=== PATIENT | female | born 1935 | race Caucasian/White ===

== ENCOUNTER 2023-06-15 03:06 | Inpatient (IN) | payer OTHER, SELFPAY ==
[2023-06-14 20:45] VITALS: BP 150/87
[2023-06-14 21:34] LABS: % Basophils 0.8 % (0-2); % Eosinophils 2.1 % (0-6); % Immature Granulocytes 0.4 % (0-0.5); % Lymphocytes 9.7 % (20.5-51.1); % Monocytes 5.6 % (1.7-9.3); % Neutrophils 81.4 % (42.2-75.2); Absolute Basophils 0.1 10^3/uL (0-0.2); Absolute Eosinophils 0.3 10^3/uL (0-0.7); Absolute Immature Granulocytes 0.1 10^3/uL (0-0.05); Absolute Lymphocytes 1.2 10^3/uL (1.2-3.4); Absolute Monocytes 0.7 10^3/uL (0.1-0.6); Absolute Neutrophils 9.7 10^3/uL (1.4-6.5); Hematocrit 39.5 % (37.0-47.0); Hemoglobin 13.5 g/dL (12.0-16.0); Mean Corp Hgb Conc. 34.2 g/dL (33.0-37.0); Mean Corpuscular Volume 90.6 fL (81.0-99.0); Mean Platelet Volume 11.2 fL (7.4-10.4); Nucleated Red Blood Cells % 0 %; Platelet Count 133 10^3/uL (130-400); Red Blood Cell Count 4.36 10^6/uL (4.20-5.40); Red Cell Dist. Width 14.7 % (11.5-14.5); White Blood Cell Count 11.9 10^3/uL (4.8-10.8)
[2023-06-14 21:42] LABS: ALT (SGPT) 91 U/L (0-35); AST (SGOT) 115 U/L (14-36); Albumin 4.2 g/dl (3.5-5.0); Alkaline Phosphatase 268 U/L (38-126); Blood Urea Nitrogen 29 mg/dl (7-17); Calcium 9.2 mg/dl (8.4-10.2); Carbon Dioxide 17 mmol/L (22-30); Chloride 104 mmol/L (98-107); Glucose 162 mg/dl (70-99); Potassium 3.8 mmol/L (3.5-5.1); Sodium 136 mmol/L (135-145); Total Bilirubin 2.6 mg/dl (0.2-1.3); Total Protein 8.1 g/dl (6.3-8.2)
[2023-06-14 21:43] LABS: Lactic Acid 3.5 mmol/L (0.7-2.0)
[2023-06-14 22:10] VITALS: BMI 33.9
--- NOTE | 2023-06-14 22:57 | ED.GENMED ---
History of Present Illness
General
Chief Complaint: Abdominal Symptoms
Source: patient
Exam Limitations: none
Time Seen by Provider: 06/14/23 22:15
Nursing documentation reviewed up to this point in time: agreed with
Travel History
Have you had any contact with someone who has COVID-19?: No
Do you have any symptoms of coronavirus? Fever > 100 degrees, chills, cough, shortness of breath, sore throat, loss of taste or smell, muscle aches, or headache?: No
History of Present Illness
History of Present Illness:
Patient presents ED secondary to chills sensation along with multiple vomiting episodes starting yesterday. Patient had a home kit yesterday which revealed positive urinary tract infection. Spoke with her primary care physician who prescribed
Bactrim yesterday. Denies urinary frequency or dysuria. Denies back pain. Denies diarrhea. Denies abdominal pain. Denies headache. Denies chest pain or shortness of breath. Denies coughing. Denies sore throat.
Past History
Past History
ED Past Medical History: HTN, Hypothyroidism and Other (seasnal allergies, UTI, )
ED Past Surgical History: Cholecystectomy, Gynecological (Partial hysterectomy) and Orthopedic ( Bila TKA, shoulder replacement)
Social History
Tobacco: Non-smoker
Alcohol: Occasional
Personal:
Living: with family
Review of Systems
Review of Systems
Allergies reviewed?: Yes
All Other Systems: ROS reviewed and negative except as documented in HPI and ROS
Constitutional: Reports chills; Denies fever
EENT: Reports no symptoms
Respiratory: Reports no symptoms
Cardiac: Reports no symptoms
ABD/GI: Reports nausea and vomiting
: Reports no symptoms
Musculoskeletal: Reports no symptoms
Skin: Reports no symptoms
Neurological: Reports no symptoms
Phy Exam
Physical Exam
Physical Exam:
Physical Exam
General: mild distress, not acutely ill. afebrile. tachycardic
Head: nc/at. eomi
Neck: supple. normal range of motion.
Heart: s1/s2 regular rate and rhythm, no murmur. equal radial pulses.
Lungs: no acute respiratory distress. clear bilaterally
Abdomen: normal bowel sounds. not tender.
Neuro: alert and oriented. no focal neurological deficits
Skin: no rash
Psychiatric: well kept. interactive and cooperative
Extremities: no edema. no calf tenderness.
Course
Orders/Labs/Results
Orders:
Orders
06/14/23 20:52
Electrocardiogram (*1) Urgent
Reason for Study: Tachycardia
EKG- Treatment ONCE
06/14/23 21:23
Complete Blood Count/With Diff Urgent
Comprehensive Metabolic Panel Urgent
Lactic Acid Urgent
Blood Culture Urgent
NORMAN Source: Blood/Venous
Specimen Description:
06/14/23 22:57
Type+Screen Urgent
BBK Wristband Number:
Straight cath- Treatment ONCE
06/14/23 22:58
0.9% Sodium Chloride 1000 ml [Nss] 1,000 ml IV BOLUS
CefTRIAXone [Rocephin] 1,000 mg IV NOW STA
06/14/23 23:01
Urinalysis Reflex To Culture Urgent
Date Specimen was Collected: 06/14/23
Time Specimen was Collected: 22:59
Urine Microscopic Reflex Cult Urgent
Urine Culture Urgent
NORMAN Source: U
Specimen Description:
Date Specimen was Collected: 06/14/23
Time Specimen was Collected: 22:59
06/15/23 02:10
Admit/Transfer Patient As Directed
Co-Sign Provider:
Level of Care: Inpatient admission
Assign to:: Telemetry
Physician / Group: [email or web address]
Diagnosis: Sepsis due to UTI
Reason for Telemetry: Other
Other Reason for Telemetry: Sepsis due to UTI
Date to Stop Telemetry: 06/17/23
Time to Stop Telemetry: 11:00
Reason for Hospitalization: Sepsis due to UTI
Expected length of stay greater than two midnights?: Yes
ELOS- Estimated Length of Stay in days: 5
I certify the patient meets the requirements for IP care: Yes
06/15/23 02:12
Code Status As Directed
Resuscitation Status: Full Code
06/15/23 04:03
0.9% Sodium Chloride 1000 ml [Nss] 1,000 ml IV 100 mls/hr
Acetaminophen [Tylenol] 1,000 mg PO BIDPRN PRN
Albuterol [ProAIR HFA INHALER] 2 puff INH R Q4HPRN PRN
06/15/23 04:03
Activity As Directed
Activity Level: With Assistance
Intake/ Output As Directed
Frequency: Per unit guidelines
Vital Signs As Directed
Frequency: Per unit guidelines
Weight As Directed
Frequency: Daily
DX Deep Vein Thrombosis Video Routine
06/15/23 Breakfast
Cholesterol Lowering
At Your Request: Full Participation
Does patient need a safe tray?: No
Cholesterol Lowering: Sodium, 2 Gram
1999 dudley/17 CHO Diabetic
06/15/23 07:00
Levothyroxine [Synthroid] 25 mcg PO DAILY AT 0700
06/15/23 08:00
Aspirin Chewable [Low Strength Aspirin] 81 mg PO DAILY
Atorvastatin [Lipitor] 40 mg PO DAILY
Furosemide [Lasix] 20 mg PO DAILY
Metoprolol Xl [Toprol Xl] 25 mg PO DAILY
Sacubitril 49/Valsartan 51 [Entresto 49 mg/51 mg] 1 tab PO BID
Sulfasalazine [Azulfidine] 500 mg PO BID
06/15/23 08:58
Complete Blood Count/No Diff IN AM
Comprehensive Metabolic Panel IN AM
Lactic Acid Q4H
Comment: repeat q4 hours x 4 or until less than 2 mmol/L
06/15/23 12:40
Lactic Acid Q4H
Comment: repeat q4 hours x 4 or until less than 2 mmol/L
06/15/23 15:33
Lactic Acid Q4H
Comment: repeat q4 hours x 4 or until less than 2 mmol/L
06/15/23 18:00
Enoxaparin Sodium [Lovenox] 40 mg SC QPM
06/16/23 00:00
CefTRIAXone [Rocephin] 1,000 mg IV Q24H
06/17/23 11:00
DC Protocol for Telemetry ONCE
Abnormal Lab Results
06/14/23 06/14/23
21:23 23:01
WBC 11.9 H 10^3/uL
(4.8-10.8)
RDW 14.7 H %
(11.5-14.5)
MPV 11.2 H fL
(7.4-10.4)
Abs Immat Gran (auto) 0.1 H 10^3/uL
(0-0.05)
Absolute Neuts (auto) 9.7 H 10^3/uL
(1.4-6.5)
Absolute Monos (auto) 0.7 H 10^3/uL
(0.1-0.6)
Neutrophils % 81.4 H %
(42.2-75.2)
Lymphocytes % 9.7 L %
(20.5-51.1)
Carbon Dioxide 17 L mmol/L
(22-30)
BUN 29 H mg/dl
(7-17)
Creatinine 1.3 H mg/dL
(0.6-1.0)
Glucose 162 H mg/dl
(70-99)
Lactic Acid 3.5 H mmol/L
(0.7-2.0)
Total Bilirubin 2.6 H mg/dl
(0.2-1.3)
AST 115 H U/L
(14-36)
ALT 91 H U/L
(0-35)
Alkaline Phosphatase 268 H U/L
(38-126)
Ur Occult Blood Reflex 1+ A
(Negative)
Urine Nitrite (Reflex) Positive A
(Negative)
Urine Bilirubin 1+ A
(Negative)
Leukocyte Esterase Rfl 2+ A
(Negative)
Urine RBC 7-10 A /HPF
(0-2)
Urine WBC (Reflex) >100 A /HPF
(0-5)
Urine Bacteria (Reflex) Many A
(Negative)
Urine Glucose 3+ A
(Negative)
06/14/23 21:23
06/14/23 21:23
Vital Signs
Initial and Last Documented VS:
Initial Vital Signs
Temp Pulse Resp BP Pulse Ox
98.5 F 120 22 150/87 93
06/14/23 20:45 06/14/23 20:45 06/14/23 20:45 06/14/23 20:45 06/14/23 20:45
Last Documented Vital Signs
Temp Pulse Resp BP Pulse Ox
98.1 F 83 20 128/62 91
06/15/23 15:26 06/15/23 15:26 06/15/23 15:26 06/15/23 15:26 06/15/23 15:26
MDM/Problems Addressed
MDM/Problems Addressed:
History and exam concerning for sepsis, likely secondary to UTI with potential development of bacteremia, despite taking 3 doses of Bactrim as an outpatient. As such, patient will be admitted for IV antibiotics and further evaluation/treatment.
Urine culture from April 2023 reviewed. Rocephin ordered.
Blood culture pending.
*Critical Care Note
Total Time (30-74mins, 75-104mins- exclusive of procedures): Not Applicable
ED Attending Note
-
Portions of this chart may have been created with voice recognition software.� Occasional wrong word or��sound alike� substitutions may have occurred due to the inherent limitations of voice recognition software.
Discharge Plan
Departure
Patient Disposition: Admit
Date of Disposition: 06/15/23
Time of Disposition: 00:46
Admit to: Telemetry
Presentation/result/management discussed w/ accepting MD/DO: Hospitalist
Discharge Problem:
Sepsis, Acute UTI
Interventions
Interventions:
*Risk Screen - Suicide Last Done: 06/14/23 20:45
*General Assessment Last Done: 06/14/23 20:45
*Neglect/Abuse Screening Last Done: 06/15/23 03:49
ED- Fall Risk Assessment Last Done: 06/15/23 04:02
*ED COVID-19 Vaccine History Last Done: 06/15/23 04:02
*Nursing Disposition Last Done: 06/15/23 04:02
CW-Ncxfsy[facility] Assessment Last Done: 06/14/23 22:10
Discharge Date and Time
Discharge Date/Time: 06/15/23 04:03
[2023-06-14] MEDS: ROCEPHIN 1000 MG IV (23:35)
[2023-06-14] MEDS: NSS 1000 IV (23:35)
[2023-06-15] VITALS (9 sets, daily range): BP systolic 107–133; BP diastolic 51–80; PULSE 78; O2SAT 93–94; BMI 34.1; BMI 33.9
[2023-06-15 00:25] LABS: Urine Albumin Trace (Neg - Trace); Urine Bilirubin 1+ (Negative); Urine Character Slightly Cloudy (Clear); Urine Color Yellow; Urine Glucose 3+ (Negative); Urine Ketone Negative (Negative); Urine Leukocyte 2+ (Negative); Urine Nitrite Positive (Negative); Urine Occult Blood 1+ (Negative); Urine Specific Gravity 1.015 (<1.030); Urine Urobilinogen Negative (Neg - 1+)
[2023-06-15 01:02] LABS: Urine Bacteria Many (Negative); Urine White Cell >100 /HPF (0-5)
--- NOTE | 2023-06-15 02:05 | HPS.HSE ---
Family Physician
-
Family Physician: DASHAWN Hauser
Chief Complaint
-
chills and rigors
History of Present Illness
87 F HX RA on disease modifying Meds, Diabetic , HX asymptomatic UTI, sepsis due to UTI BiB daughter from home due recurrence nausea, chills and rigors. Similar event yesterday . Daughter repostrs she checked urine home test for UTI and POS. PCP
started on Bactrim but recurrence nausea, chills and rigors and decided to come to ER.
Denied urinary frequency or dysuria.
Denied flank pain
Medical History
Past Medical History
Past Medical History: Reports Other
Additional Past Medical History:
Rheumatoid arthritis
Osteoarthritis
Primary hypertension
Hypocalcemia status post parathyroidectomy
Overflow incontinence
Past Surgical History: Reports Other
Additional Past Surgical History:
Cholecystectomy
Partial hysterectomy
Bilateral total knee replacement
Shoulder replacement
Social History
Tobacco: Non-smoker
Alcohol: Occasional
Personal:
Living: With Family
Family History
Family History: Not pertinent
Allergies / Home Medications
Allergies reflects when Allergies were last updated in [employer].
Home Medications with original date entered in [employer]
Allergy/Medication List:
Allergies
Allergy/AdvReac Type Severity Reaction Status Date / Time
morphine Allergy Itching Verified 06/14/23 20:44
amoxicillin [From Augmentin] AdvReac Rash Verified 06/14/23 20:44
clavulanic acid AdvReac Rash Verified 06/14/23 20:44
[From Augmentin]
Home Medications
cetirizine 10 mg tablet 10 mg PO DAILY Allergies 09/07/19
leflunomide 20 mg tablet (Arava) 20 mg PO DAILY rheumatoid arthritis 09/07/19
levothyroxine 25 mcg tablet 25 mcg PO DAILY Thyroid 09/07/19
calcium citrate 200 mg (950 mg) tablet 200 mg PO DAILY Supplement 06/01/22
estradiol 0.01% (0.1 mg/gram) vaginal cream 1 appful vaginal TUFR Hormonal Agent 06/01/22
mirabegron 50 mg tablet,extended release 24 hr (Myrbetriq) 50 mg PO DAILY Urinary Issue 06/01/22
rlgjucpx-ajjz-suxt 8 mg-folic 400 mcg-K 50 mcg-lutein 300 mcg tablet (Centrum Silver Women) 1 tab PO DAILY Supplement 06/01/22
sulfasalazine 500 mg tablet 500 mg PO BID ARTHRITIS 06/01/22
acetaminophen 500 mg tablet (Tylenol Extra Strength) 1,000 mg PO BIDPRN PRN mild pain 04/05/23
albuterol sulfate 90 mcg/actuation aerosol inhaler (ProAir HFA) 2 puff inhalation R Q4HPRN PRN sob 04/05/23
cholecalciferol (vitamin D3) 50 mcg (2,000 unit) tablet 50 mcg PO DAILY Supplement 04/05/23
aspirin 81 mg chewable tablet (Children's Aspirin) 81 mg PO DAILY Heart Failure 30 days #30 tabs 04/09/23
empagliflozin 10 mg tablet (Jardiance) 10 mg PO DAILY Fluid retention/Swelling 30 days #30 tabs 04/09/23
furosemide 20 mg tablet 20 mg PO DAILY Fluid retention/Swelling 30 days #30 tabs 04/09/23
metoprolol succinate 25 mg tablet,extended release 24 hr 25 mg PO DAILY Blood pressure 30 days #30 tabs 04/09/23
atorvastatin 40 mg tablet 40 mg PO DAILY High cholesterol 06/14/23
sacubitril 49 mg-valsartan 51 mg tablet (Entresto) 1 tab PO BID 06/14/23
Review of Systems
-
Constitutional: Reports Chills
EENT: Reports No Symptoms
Respiratory: Reports No Symptoms
Cardiac: Reports No Symptoms
Abdomen/GI: Reports No Symptoms
: Reports No Symptoms
Musculoskeletal: Reports No Symptoms
Skin: Reports No Symptoms
Neurological: Reports No Symptoms
Endocrine: Reports No Symptoms
Hematologic/Lymphatic: Reports No Symptoms
Psych: Reports No Symptoms
Physical Exam
Vital Signs
Vital Signs
Temp Pulse Resp BP Pulse Ox
99.4 F 90 17 113/51 94
06/15/23 00:15 06/15/23 01:00 06/15/23 01:00 06/15/23 01:00 06/15/23 01:04
Physical Exam
General: Well Developed, Well Nourished and No Apparent Distress
HEENT: NormoCephalic and Moist mucous membranes
Respiratory: Clear
Cardiac: S1/S2 and Regular Rhythm
Breast: Deferred by me
GI: Soft, Non Tender, Non Distended and Normal Bowel Sounds
Rectal: Deferred by Provider
Genito-urinary: Deferred by me and No costovertebral tender
Musculoskeletal: No Edema
Skin: Warm and Dry
Neuro: AO x 3 and Nonfocal/grossly intact
Psych: Calm
Laboratory Results
-
06/14/23 21:23
06/14/23 21:23
Laboratory Results
Lactic Acid 3.5 mmol/L (0.7-2.0) H 06/14/23 21:23
Total Bilirubin 2.6 mg/dl (0.2-1.3) H 06/14/23 21:23
AST 115 U/L (14-36) H 06/14/23 21:23
ALT 91 U/L (0-35) H 06/14/23 21:23
Alkaline Phosphatase 268 U/L (38-126) H 06/14/23 21:23
Data Reviewed
-
Medical Tests (Nuc Med, Echo, EKG etc): Report Reviewed by me
Lab Data: Labs Reviewed by me
Old Records: Reviewed
Impression/Plan
-
Reviewed VS: T 99.4 HR 80s - 90s BP 113/50 POx 94 on RA
Data
WCC 11.9
CO2 17
BUN 29
Cr 1.3 eGFR 40
BG 160
LA 3.5
TB 2.6
AST 115 ALT 90 AKP 270
UA suggestive of UTI
EKG
SINUS TACHYCARDIA WITH OCCASIONAL PREMATURE VENTRICULAR COMPLEXES
LEFT BUNDLE BRANCH BLOCK
ABNORMAL ECG
WHEN COMPARED WITH ECG OF 05-APR-2023 07:07,
PREMATURE VENTRICULAR COMPLEXES ARE NOW PRESENT
UCx sent
BCx sent
Last hospitalist admission: 04/05/23 - 04/09/23 Dxs:
Acute hypoxic respiratory insufficiency likely secondary to new onset of acute HFmrEF
cardiac catheterization for elevated troponin 2/2 non-PR troponin elevation in the setting of acute HFpEF versus NSTEMI
Sepsis likely secondary to e.coli urinary tract infection
Lactic acidosis
ASSESSMENT & PLAN
Sepsis due to UTI s/p septic IVF bolus
HX E Coli POS UCx complicated by sepsis in Apr 2023 - sensitive to most ABx except Gent and Bactrim
Lactic acidosis
PMHX of asymptomatic UTI
- UCx and BCx sent
- Empiric IV CFTX
- IVF NS
- f/u VS and Lactate
Primary hypertension
- cont. Norvasc
Overflow incontinent
- cont. oxybutynin
- Held Myrbetriq
Rheumatoid arthritis
- cont. sulfasalazine
- held leflunomide for now
Hypothyroidism
- cont. Synthroid
DVT Px: LMWH
Code: Full code
IP TLM
[2023-06-15] MEDS: NSS 1000 IV (04:21)
--- NOTE | 2023-06-15 04:45 | PTCARENOTE ---
Received patient from ER, AAOx3. Patient transferred from stretcher to bed with assist of 4. No c/o pain at this time. Oriented to unit, call cuellar in reach. Bed alarm placed for safety.
[2023-06-15] MEDS: SYNTHROID 25 MCG PO (05:58)
[2023-06-15] MEDS: LASIX 20 MG PO (08:46)
[2023-06-15] MEDS: LIPITOR 40 MG PO (08:46)
[2023-06-15] MEDS: AZULFIDINE 500 MG PO ×2 (08:47→20:07)
[2023-06-15] MEDS: TOPROL XL 25 MG PO (08:47)
[2023-06-15] MEDS: ENTRESTO 49 MG/51 MG 1 TAB PO (08:47)
[2023-06-15] MEDS: LOW STRENGTH ASPIRIN 81 MG PO (08:47)
[2023-06-15 09:21] LABS: Hematocrit 35.5 % (37.0-47.0); Hemoglobin 11.9 g/dL (12.0-16.0); Mean Corp Hgb Conc. 33.5 g/dL (33.0-37.0); Mean Corpuscular Hgb 31.2 pg (27.0-31.0); Mean Corpuscular Volume 92.9 fL (81.0-99.0); Mean Platelet Volume 10.9 fL (7.4-10.4); Platelet Count 125 10^3/uL (130-400); Red Blood Cell Count 3.82 10^6/uL (4.20-5.40); Red Cell Dist. Width 14.9 % (11.5-14.5); White Blood Cell Count 12.4 10^3/uL (4.8-10.8)
--- NOTE | 2023-06-15 09:21 | W.PN.UPDATE ---
Update Note
Progress Note Update
Nonbillable update note
Admitted overnight for UTI symptoms, not improving with outpatient Bactrim
AM labs pending
Feels tired, otherwise has no complaints
Assessment:
Severe sepsis (Leukocytosis, tachycardia, UTI, lactic acidosis)
prior hx of MDRO E. Coli
- continue sepsis protocol IVF; follow lactate levels
- continue IV Rocephin, day 1 - follow cultures
SAMARIA on CKD stage 3
- continue IVF; follow labs
- renal/bladder US
Elevated LFTs
- mildly chronically elevated
- now more elevated, no RUQ pain
- trend labs
Chronic HFmrEF
Essential HTN
- hold diuretic/Jardiance/Entresto
- continue BB
- hold Entresto
HLD - statin on hold
Overflow incontinent
- cont oxybutynin
- Held Myrbetriq
- noted prior hx of Bulkamid procedure (Dr. Willy Hill)
Rheumatoid arthritis
Osteoarthritis
- cont Sulfasalazine
- held�leflunomide for now
Hypothyroidism
- continue Synthroid
DVT ppx: Lovenox
Code: Full
[2023-06-15 09:34] LABS: Lactic Acid 2.4 mmol/L (0.7-2.0)
[2023-06-15 09:48] LABS: ALT (SGPT) 66 U/L (0-35); AST (SGOT) 76 U/L (14-36); Albumin 3.3 g/dl (3.5-5.0); Alkaline Phosphatase 217 U/L (38-126); Blood Urea Nitrogen 27 mg/dl (7-17); Calcium 8.4 mg/dl (8.4-10.2); Carbon Dioxide 20 mmol/L (22-30); Chloride 108 mmol/L (98-107); Estimated Creatinine Clearance 35 ml/min; Glucose 108 mg/dl (70-99); Potassium 3.7 mmol/L (3.5-5.1); Sodium 137 mmol/L (135-145); Total Protein 6.6 g/dl (6.3-8.2); eGFR 44.36
[2023-06-15] MEDS: SODIUM BICARBONATE 1150 MEQ IV (10:38)
[2023-06-15 13:01] LABS: Lactic Acid 2.6 mmol/L (0.7-2.0)
[2023-06-15] MEDS: TYLENOL 1000 MG PO (15:09)
[2023-06-15 16:08] LABS: Lactic Acid 1.4 mmol/L (0.7-2.0)
--- NOTE | 2023-06-15 16:44 | CM ---
Alert awake oriented patient who lives with her daughter Mayra and flory Raya 32yo who lives in an condo with 130 steps to enter .
She is assisted in all activities of daily living.Offered VN will need PT OT to assist dc plan.She uses cane and walker.
Never had VN/[facility] hx SNF
Pharmacy [facility]
PCP Dr Hauser
PLAN will need PT OT for dc planning
--- NOTE | 2023-06-15 16:49 | CM ---
Alert awake oriented patient who lives with her daughter Mayra and flory Raya 32yo who lives in an condo with 13 steps to enter .
She is assisted in all activities of daily living.Offered VN will need PT OT to assist dc plan.She uses cane and walker.
Never had VN/[facility] hx SNF
Pharmacy [facility]
PCP Dr Hauser
PLAN will need PT OT for dc planning
[2023-06-15] MEDS: LOVENOX 40 MG SC (17:18)
[2023-06-16] MEDS: STERILE WATER FOR INJECTION 10 ML IV ×2 (00:06→23:10)
[2023-06-16] MEDS: ROCEPHIN 1000 MG IV ×2 (00:06→23:10)
[2023-06-16 03:55] VITALS: BP 134/59
[2023-06-16 06:00] VITALS: BMI 35.0
[2023-06-16] MEDS: SYNTHROID 25 MCG PO (06:11)
[2023-06-16 07:18] VITALS: BP 126/56
[2023-06-16 08:12] LABS: % Basophils 0.8 % (0-2); % Eosinophils 2.7 % (0-6); % Immature Granulocytes 0.3 % (0-0.5); % Lymphocytes 18.8 % (20.5-51.1); % Monocytes 11.7 % (1.7-9.3); % Neutrophils 65.7 % (42.2-75.2); Absolute Basophils 0.1 10^3/uL (0-0.2); Absolute Eosinophils 0.2 10^3/uL (0-0.7); Absolute Lymphocytes 1.4 10^3/uL (1.2-3.4); Absolute Monocytes 0.9 10^3/uL (0.1-0.6); Absolute Neutrophils 4.9 10^3/uL (1.4-6.5); Hematocrit 32.9 % (37.0-47.0); Hemoglobin 11.3 g/dL (12.0-16.0); Mean Corp Hgb Conc. 34.3 g/dL (33.0-37.0); Mean Corpuscular Volume 90.1 fL (81.0-99.0); Mean Platelet Volume 11.9 fL (7.4-10.4); Nucleated Red Blood Cells % 0 %; Platelet Count 123 10^3/uL (130-400); Red Blood Cell Count 3.65 10^6/uL (4.20-5.40); Red Cell Dist. Width 14.4 % (11.5-14.5); White Blood Cell Count 7.4 10^3/uL (4.8-10.8)
[2023-06-16] MEDS: TOPROL XL 25 MG PO (08:21)
[2023-06-16] MEDS: LIPITOR 40 MG PO (08:21)
[2023-06-16] MEDS: LOW STRENGTH ASPIRIN 81 MG PO (08:21)
[2023-06-16] MEDS: AZULFIDINE 500 MG PO ×2 (08:21→19:31)
[2023-06-16 08:29] LABS: ALT (SGPT) 51 U/L (0-35); AST (SGOT) 58 U/L (14-36); Albumin 3.1 g/dl (3.5-5.0); Alkaline Phosphatase 204 U/L (38-126); Blood Urea Nitrogen 24 mg/dl (7-17); Calcium 7.7 mg/dl (8.4-10.2); Carbon Dioxide 20 mmol/L (22-30); Chloride 104 mmol/L (98-107); Estimated Creatinine Clearance 42 ml/min; Glucose 88 mg/dl (70-99); Potassium 3.2 mmol/L (3.5-5.1); Sodium 132 mmol/L (135-145); Total Bilirubin 2.1 mg/dl (0.2-1.3); Total Protein 6.3 g/dl (6.3-8.2); eGFR 55.21
--- NOTE | 2023-06-16 10:08 | W.PN.HOSP.TC ---
Today's Communication/Plan
-
repeat Bcx, continue IV Abx
renal US
cap IVF
PO sodium bicarb x few doses
replete K+
Assessment / Plan
Assessment / Plan
Assessment:
Severe sepsis (Leukocytosis, tachycardia, UTI, lactic acidosis)
E. Coli Bacteremia
prior hx of MDRO E. Coli
- completed sepsis protocol IVF; lactate levels improved
- continue IV Rocephin, day 2 - follow cultures
- repeat blood cultures this AM
SAMARIA on CKD stage 3
- completed IVF; labs improving
- renal/bladder US pending
Elevated LFTs
- mildly chronically elevated
- now more elevated, no RUQ pain
- trend labs
Chronic HFmrEF
Essential HTN
- hold diuretic/Jardiance/Entresto - consider resumption Saturday
- continue BB
HLD - statin on hold
Overflow incontinent
- cont oxybutynin
- Held Myrbetriq
- noted prior hx of Bulkamid procedure (Dr. Willy Hill)
Rheumatoid arthritis
Osteoarthritis
- cont Sulfasalazine
- held�leflunomide for now
Hypothyroidism
- continue Synthroid
Hyponatremia from hypotonic fluids
- monitor BMP
Hypocalcemia in setting of low albumin
Hypokalemia
- replete PO now
Dilutional anemia
DVT ppx: Lovenox
Code: Full
Anticipated Discharge: > 48 hours
Subjective/Interval History
-
Date of Service: June 16, 2023
no complaints
Objective Data
-
Labs:
Laboratory Results
06/16/23
07:00
WBC 7.4
Hgb 11.3 L
Hct 32.9 L
Plt Count 123 L
Sodium 132 L
Potassium 3.2 L
Chloride 104
Carbon Dioxide 20 L
BUN 24 H
Creatinine 1.0
Glucose 88
Calcium 7.7 L
Total Bilirubin 2.1 H
AST 58 H
ALT 51 H
Alkaline Phosphatase 204 H
Vital Signs:
Vital Signs
Temp Pulse Resp BP Pulse Ox
99 F 88 18 126/56 92
06/16/23 07:18 06/16/23 08:21 06/16/23 07:18 06/16/23 08:21 06/16/23 07:18
I&O
06/15/23 06/16/23 06/17/23
06:59 06:59 06:59
Intake Total 2675 / 2675
Balance 2675 / 2675
Physical Exam
-
General: No Apparent Distress
HEENT: Normocephalic and Atraumatic
Respiratory: Negative Wheezes or Rales
Cardiac: Regular Rhythm and S1/S2
GI: Soft and Nontender
Genito-urinary: No Costovertebral Tender
Musculoskeletal: No Edema
Neuro: AO x 3
Hematologic / Lymphatic: No Lymphadenopathy
Psych: Calm
Data Reviewed
-
Total Time Spent with Patient (in minutes): 45
Labs: Labs Reviewed by me
[2023-06-16] MEDS: KCL 40 MEQ PO ×2 (10:23→17:20)
[2023-06-16 11:11] VITALS: BP 125/66
[2023-06-16 15:09] VITALS: BP 114/69
[2023-06-16] MEDS: SODIUM BICARBONATE 650 MG PO ×2 (16:37→21:01)
[2023-06-16] MEDS: LOVENOX 40 MG SC (16:37)
[2023-06-16 19:44] VITALS: BP 128/69
[2023-06-16 23:38] VITALS: BP 127/66
[2023-06-17 03:26] VITALS: BP 143/71
[2023-06-17 06:00] VITALS: BMI 34.8
[2023-06-17] MEDS: SYNTHROID 25 MCG PO (06:04)
--- NOTE | 2023-06-17 06:37 | W.PN.HOSP.TC ---
Today's Communication/Plan
-
cont abx
ID eval
PT/OT
Lasix Entresto resumed with holding parameters
Acidosis resolved, bicarb supplementation completed
Assessment / Plan
Assessment / Plan
Physical Exam
General: No Apparent Distress
HEENT: Normocephalic and Atraumatic
Respiratory: Negative Wheezes or Rales
Cardiac: Regular Rhythm and S1/S2
GI: Soft and Nontender
Genito-urinary: No Costovertebral Tender
Musculoskeletal: No Edema
Neuro: AO x 3
Psych: Calm
Assessment:
Severe sepsis (Leukocytosis, tachycardia, UTI, lactic acidosis)
E. Coli Bacteremia
prior hx of MDRO E. Coli
- completed sepsis protocol IVF; lactate levels improved
- continue IV Rocephin, day 3 - follow cultures note E. coli w/ MDR ampicillin unasyn gentamicin bactrim intermediate resistance cefazolin and tobramycin
- repeat blood cultures NGTD
-ID eval requested
SAMARIA on CKD stage 3
- completed IVF; labs improving
- renal/bladder US appreciated no acute abn's
Elevated LFTs
- mildly chronically elevated
- now more elevated, no RUQ pain
- trend labs, resolving
Chronic HFmrEF
Essential HTN
- hold Jardiance
-lasix Entresto resumed with holding parameters
- continue BB
HLD - statin on hold
Mild Acidosis resolved with Bicarb supplementation completed
Overflow incontinent
- cont oxybutynin
- Held Myrbetriq
- noted prior hx of Bulkamid procedure (Dr. Willy Hill)
Rheumatoid arthritis
Osteoarthritis
- cont Sulfasalazine
- held�leflunomide for now
Hypothyroidism
- continue Synthroid
Hyponatremia from hypotonic fluids
- monitor BMP
Hypocalcemia wnl when corrected for low albumin
Hypokalemia
- replete PO now
Dilutional anemia
DVT ppx: Lovenox
Code: Full
I spent a total of 55 minutes with the patient or on the floor. More than 50% of this time involved counseling and coordination of care.
Anticipated Discharge: 24 - 48 hours
Subjective/Interval History
-
Date of Service: June 17, 2023
Reports general malaise weakness.
Objective Data
-
Labs:
Laboratory Results
06/17/23
06:00
WBC Pending
Hgb Pending
Hct Pending
Plt Count Pending
Sodium Pending
Potassium Pending
Chloride Pending
Carbon Dioxide Pending
BUN Pending
Creatinine Pending
Glucose Pending
Calcium Pending
Total Bilirubin Pending
AST Pending
ALT Pending
Alkaline Phosphatase Pending
Vital Signs:
Vital Signs
Temp Pulse Resp BP Pulse Ox
97.9 F 83 17 143/71 94
06/17/23 03:26 06/17/23 03:26 06/17/23 03:26 06/17/23 03:26 06/17/23 03:26
I&O
06/15/23 06/16/23 06/17/23
06:59 06:59 06:59
Intake Total 2675 / 2675 1140 / 1140
Balance 2675 / 2675 1140 / 1140
[2023-06-17 07:10] VITALS: BP 160/75
[2023-06-17 08:42] LABS: % Basophils 0.8 % (0-2); % Eosinophils 5.5 % (0-6); % Immature Granulocytes 0.3 % (0-0.5); % Lymphocytes 24.5 % (20.5-51.1); % Monocytes 15.8 % (1.7-9.3); % Neutrophils 53.1 % (42.2-75.2); Absolute Basophils 0.1 10^3/uL (0-0.2); Absolute Eosinophils 0.3 10^3/uL (0-0.7); Absolute Lymphocytes 1.5 10^3/uL (1.2-3.4); Absolute Neutrophils 3.2 10^3/uL (1.4-6.5); Hemoglobin 11.4 g/dL (12.0-16.0); Mean Corp Hgb Conc. 33.5 g/dL (33.0-37.0); Mean Corpuscular Hgb 30.8 pg (27.0-31.0); Mean Corpuscular Volume 91.9 fL (81.0-99.0); Mean Platelet Volume 11.2 fL (7.4-10.4); Nucleated Red Blood Cells % 0 %; Platelet Count 129 10^3/uL (130-400); Red Cell Dist. Width 14.5 % (11.5-14.5)
[2023-06-17 08:58] LABS: ALT (SGPT) 42 U/L (0-35); AST (SGOT) 46 U/L (14-36); Albumin 2.9 g/dl (3.5-5.0); Alkaline Phosphatase 195 U/L (38-126); Blood Urea Nitrogen 20 mg/dl (7-17); Calcium 7.7 mg/dl (8.4-10.2); Carbon Dioxide 23 mmol/L (22-30); Chloride 104 mmol/L (98-107); Estimated Creatinine Clearance 47 ml/min; Glucose 98 mg/dl (70-99); Potassium 3.6 mmol/L (3.5-5.1); Sodium 131 mmol/L (135-145); Total Bilirubin 1.4 mg/dl (0.2-1.3); eGFR > 60.00
[2023-06-17] MEDS: LOW STRENGTH ASPIRIN 81 MG PO (09:21)
[2023-06-17] MEDS: LIPITOR 40 MG PO (09:21)
[2023-06-17] MEDS: SODIUM BICARBONATE 650 MG PO ×2 (09:21→17:00)
[2023-06-17] MEDS: TOPROL XL 25 MG PO (09:22)
[2023-06-17] MEDS: AZULFIDINE 500 MG PO ×2 (09:23→20:49)
[2023-06-17 10:34] VITALS: BP 137/68; BP 142/75; PULSE 83; O2SAT 92
[2023-06-17 15:00] VITALS: BP 129/63
[2023-06-17] MEDS: LOVENOX 40 MG SC (17:00)
[2023-06-17] MEDS: ENTRESTO 49 MG/51 MG 1 TAB PO (20:49)
[2023-06-17] MEDS: ROCEPHIN 1000 MG IV (23:09)
[2023-06-17] MEDS: STERILE WATER FOR INJECTION 10 ML IV (23:09)
[2023-06-17 23:42] VITALS: BP 144/66
[2023-06-18] MEDS: SYNTHROID 25 MCG PO (05:13)
[2023-06-18 06:00] VITALS: BMI 34.5
[2023-06-18 07:10] VITALS: BP 164/81
--- NOTE | 2023-06-18 07:59 | W.PN.HOSP.TC ---
Today's Communication/Plan
-
Cont abx
PT/OT
discharge planning SNF rehab vs Home PT
Assessment / Plan
Assessment / Plan
Physical Exam
General: No Apparent Distress
HEENT: Normocephalic and Atraumatic
Respiratory: Negative Wheezes or Rales
Cardiac: Regular Rhythm and S1/S2
GI: Soft and Nontender
Genito-urinary: No Costovertebral Tender
Musculoskeletal: No Edema
Neuro: AO x 3
Psych: Calm
Assessment:
Severe sepsis (Leukocytosis, tachycardia, UTI, lactic acidosis)
E. Coli Bacteremia
prior hx of MDRO E. Coli
- completed sepsis protocol IVF; lactate levels improved
- continue IV Rocephin, day 3 - follow cultures note E. coli w/ MDR ampicillin unasyn gentamicin bactrim intermediate resistance cefazolin and tobramycin
- repeat blood cultures NGTD 48H
-ID eval appreciated cont Ceftriaxone while inpt and convert to Cefdinir on discharge, to cont w/ abx through 06/24
SAMARIA resolved
- completed IVF; labs improving
- renal/bladder US appreciated no acute abn's
Elevated LFTs
- mildly chronically elevated
- improving
Chronic HFmrEF
Essential HTN
- Jardiance discontinued given frequent recurrent UTI
- Lasix Entresto resumed with holding parameters, continue
- continue BB
HLD - statin on hold
Mild Acidosis resolved with Bicarb supplementation completed
Overflow incontinence
- cont oxybutynin
- Held Myrbetriq
- noted prior hx of Bulkamid procedure (Dr. Willy Hill)
-Outpatient Urology Follow up recommended
Rheumatoid arthritis
Osteoarthritis
- cont Sulfasalazine
- held�leflunomide for now
Hypothyroidism
- continue Synthroid
Hyponatremia from hypotonic fluids since improved/resolved Na 130s
Hypocalcemia wnl when corrected for low albumin
Hypokalemia
monitor and replete as needed
Mild Anemia
H&H stable
PT/OT eval appreciated SNF Rehab vs Home PT
DVT ppx: Lovenox
Code: Full
discussed with patient and her daughter Mayra
I spent a total of 55 minutes with the patient or on the floor. More than 50% of this time involved counseling and coordination of care.
Anticipated Discharge: Within 24 hours
Subjective/Interval History
-
Date of Service: June 18, 2023
Continues to report feeling weak though feels overall improved. Denies new acute issues at this time.
Objective Data
-
Labs:
Laboratory Results
06/18/23
07:01
WBC Pending
Hgb Pending
Hct Pending
Plt Count Pending
Sodium Pending
Potassium Pending
Chloride Pending
Carbon Dioxide Pending
BUN Pending
Creatinine Pending
Glucose Pending
Calcium Pending
Total Bilirubin Pending
AST Pending
ALT Pending
Alkaline Phosphatase Pending
Vital Signs:
Vital Signs
Temp Pulse Resp BP Pulse Ox
98.8 F 85 17 144/66 95
06/17/23 23:42 06/17/23 23:42 06/17/23 23:42 06/17/23 23:42 06/17/23 23:42
I&O
06/17/23 06/18/23 06/19/23
06:59 06:59 06:59
Intake Total 1140 / 1140 720 / 720
Balance 1140 / 1140 720 / 720
[2023-06-18 08:14] LABS: % Basophils 1.5 % (0-2); % Eosinophils 7.7 % (0-6); % Immature Granulocytes 0.4 % (0-0.5); % Lymphocytes 26.5 % (20.5-51.1); % Neutrophils 50.9 % (42.2-75.2); Absolute Basophils 0.1 10^3/uL (0-0.2); Absolute Eosinophils 0.4 10^3/uL (0-0.7); Absolute Lymphocytes 1.5 10^3/uL (1.2-3.4); Absolute Monocytes 0.7 10^3/uL (0.1-0.6); Absolute Neutrophils 2.8 10^3/uL (1.4-6.5); Hematocrit 34.9 % (37.0-47.0); Hemoglobin 11.9 g/dL (12.0-16.0); Mean Corp Hgb Conc. 34.1 g/dL (33.0-37.0); Mean Corpuscular Hgb 31.5 pg (27.0-31.0); Mean Corpuscular Volume 92.3 fL (81.0-99.0); Mean Platelet Volume 11.1 fL (7.4-10.4); Nucleated Red Blood Cells % 0 %; Platelet Count 154 10^3/uL (130-400); Red Blood Cell Count 3.78 10^6/uL (4.20-5.40); Red Cell Dist. Width 14.1 % (11.5-14.5); White Blood Cell Count 5.5 10^3/uL (4.8-10.8)
[2023-06-18 08:23] LABS: ALT (SGPT) 36 U/L (0-35); AST (SGOT) 38 U/L (14-36); Albumin 2.9 g/dl (3.5-5.0); Alkaline Phosphatase 211 U/L (38-126); Blood Urea Nitrogen 18 mg/dl (7-17); Calcium 8.6 mg/dl (8.4-10.2); Carbon Dioxide 24 mmol/L (22-30); Chloride 103 mmol/L (98-107); Estimated Creatinine Clearance 60 ml/min; Glucose 100 mg/dl (70-99); Potassium 3.8 mmol/L (3.5-5.1); Sodium 135 mmol/L (135-145); Total Bilirubin 1.2 mg/dl (0.2-1.3); Total Protein 6.2 g/dl (6.3-8.2); eGFR > 60.00
[2023-06-18] MEDS: LASIX 20 MG PO (09:14)
[2023-06-18] MEDS: LOW STRENGTH ASPIRIN 81 MG PO (09:14)
[2023-06-18] MEDS: LIPITOR 40 MG PO (09:14)
[2023-06-18] MEDS: AZULFIDINE 500 MG PO ×2 (09:15→20:04)
[2023-06-18] MEDS: ENTRESTO 49 MG/51 MG 1 TAB PO ×2 (09:15→20:03)
[2023-06-18] MEDS: TOPROL XL 25 MG PO (09:15)
--- NOTE | 2023-06-18 09:33 | CON.ID ---
Consultation
-
Date/Time Consultation Requested: 06/17/2023 1030
Date/Time Consultation Performed: 06/18/2023 930
Requesting Provider: Dr. Fraga
Performing Provider: Dr. Murphy
Reason for Consultation: E. coli bacteremia
Chief Complaint / Past History
History of Present Illness
Tati Eldridge is an 87-year-old female being evaluated at the request of Dr. Fraga in regards to E. coli bacteremia. History is obtained from chart review, along with patient interview. The patient presented to [facility] on 06/13 following
the development of chills and multiple episodes of vomiting starting on 06/12. According to reviewed notes the patient had a 'home kit' which did not suggested a urinary tract infection, but after discussing with her PCP, was prescribed Bactrim.
She denied any frequency or dysuria, back pain or diarrhea. Despite antibiotics, she continued with episodes of chills and developed vomiting, and she came to the emergency room for further evaluation. Once here, she was found to have a
leukocytosis. Blood cultures obtained at admission, along with urine culture have been found to be positive for E. coli, and Infectious Diseases is asked to comment upon further antimicrobial therapy.
At present, she reports feeling well. She denies any pain. She denies any urinary discomfort. She denies any hematuria. Prior chills have abated.
Past History
Additional Past Medical History:
HTN
Hypothyroidism
Hx UTIs
Additional Past Surgical History:
Cholecystectomy
Partial hysterectomy
Bilateral TKA
Shoulder replacement
Allergy History:
morphine Allergy (Verified 06/14/23 20:44)
Itching
Augmentin: Developed jaundice
Medications Reviewed: Yes
Current Antibiotics:
Ceftriaxone
Social History
Tobacco: Non-Smoker
Alcohol: Occasional
Drug: None
Personal:
Living: With Family
Employment: Retired
Family History
Family History: Not Pertinent
Review of Systems
Vital Signs
Temp Pulse Resp BP Pulse Ox
98 F 85 20 164/81 93
06/18/23 07:10 06/18/23 09:15 06/18/23 07:10 06/18/23 09:15 06/18/23 07:10
Physical Exam
Physical Exam
Constitutional: No Acute Distress, Comfortable and Non-toxic
Eyes: Pupils Round, No Conjunctival Hemorrhage and Sclera Anicteric
Oral: No Thrush and No Ulcers
Cardiovascular: S1/S2; Negative S3/S4 or Murmur
Pulmonary: Non Labored; Negative Wheezes, Rales or Rhonchi
Gastrointestinal: Soft, Non Tender, Non Distended, Normal Bowel Sounds, No Rebound and No Guarding
Genito-Urinary: Negative Tsang, Suprapubic Tenderness or CVA Tenderness
Extremities: Negative Edema, Cyanosis or Erythema
Neurological: Awake and Alert
Psychological: Calm
Lab / Diagnostic Study Results
06/18/23 07:01
06/18/23 07:01
Abs Immat Gran (auto) 0.0 10^3/uL (0-0.05) 06/18/23 07:01
Absolute Neuts (auto) 2.8 10^3/uL (1.4-6.5) 06/18/23 07:01
Absolute Lymphs (auto) 1.5 10^3/uL (1.2-3.4) 06/18/23 07:01
Absolute Monos (auto) 0.7 10^3/uL (0.1-0.6) H 06/18/23 07:01
Absolute Basos (auto) 0.1 10^3/uL (0-0.2) 06/18/23 07:01
Immature Gran % 0.4 % (0-0.5) 06/18/23 07:01
Neutrophils % 50.9 % (42.2-75.2) 06/18/23 07:01
Lymphocytes % 26.5 % (20.5-51.1) 06/18/23 07:01
Monocytes % 13.0 % (1.7-9.3) H 06/18/23 07:01
Eosinophils % 7.7 % (0-6) H 06/18/23 07:01
Basophils % 1.5 % (0-2) 06/18/23 07:01
Lactic Acid 1.4 mmol/L (0.7-2.0) 06/15/23 15:33
Ur Squamous Epith Cells 3-5 /LPF (Few) 06/14/23 23:01
Microbiology Results
Micro:
06/16/23 07:00 Blood Culture - Preliminary
Blood/Venous No Growth in 48 hours- Final report to follow
06/14/23 21:23 Blood Culture - Final
Blood/Venous Escherichia coli
Gram Stain - Final
06/14/23 23:01 Urine Culture - Final
Urine Escherichia coli
Blood Culture Final 06/17/23-34
Organism 1 Escherichia coli
1. Escherichia coli
M.I.C. RX
--------- ---
Amoxicillin/Potas. Clavulanate <=8/4 S
Ampicillin >16 R
Ampicillin/Sulbactam >16/8 R
Cefazolin 4 I
Cefepime <=2 S
Ceftazidime <=1 S
Ceftriaxone <=1 S
Ertapenem <=0.5 S
Ciprofloxacin <=0.25 S
Gentamicin >8 R
Levofloxacin <=0.5 S
Meropenem <=1 S
Piperacillin/Tazobactam <=16 S
Tobramycin 8 I
Trimethoprim/Sulfamethoxazole >2/38 R
Imaging:
06/16/2023 Ultrasound (renal with bladder): No hydronephrosis noted. No solid renal mass or echogenic shadowing foci to suggest renal calculi. A largely decompressed bladder is seen in the pelvis and otherwise appears grossly unremarkable.
Ureterovesical jets were not visualized. Please see full dictation for additional detail.
Assessment / Plan
Complicated urinary tract infection
Bacteremia
Leukocytosis
Chills
HTN
Hypothyroidism
Recommendations:
Continue with ceftriaxone while inpatient.
At discharge, change to cefdinir 300 mg p.o. twice daily. Continue with antibiotics through 06/25/2023.
Consider repeat urinalysis/reflex culture approximately 10 to 14 days following completion of antibiotic therapy.
Given history of multiple episodes of UTI, patient may benefit from Urology evaluation as an outpatient.
[2023-06-18 15:10] VITALS: BP 145/73
[2023-06-18 15:47] VITALS: BP 145/71; PULSE 86; O2SAT 93
--- NOTE | 2023-06-18 16:55 | CM ---
CM following re: d/c planning
Chart reviewed
Pt discharge anticipated within the next 24-48 hours
ID following and patient to continue on IV Rocephin before transitioning to oral Omnicef through 06/24
Per PT eval. post d/c recommendation wavers btwn SNF vs home PT
CM will continue to monitor patient progress and assist with any needs at d/c as indicated
PLAN: CM following for needs
[2023-06-18] MEDS: LOVENOX 40 MG SC (17:01)
[2023-06-18 23:00] VITALS: BP 122/57
[2023-06-19] MEDS: STERILE WATER FOR INJECTION 10 ML IV ×2 (01:00→23:55)
[2023-06-19] MEDS: ROCEPHIN 1000 MG IV ×2 (01:00→23:55)
[2023-06-19 05:11] VITALS: BMI 34.1
[2023-06-19] MEDS: SYNTHROID 25 MCG PO (05:49)
--- NOTE | 2023-06-19 07:11 | W.PN.HOSP.TC ---
Today's Communication/Plan
-
cont current treatment
likely discharge tomorrow with outpatient PT (patient declines home health)
Assessment / Plan
Assessment / Plan
Physical Exam
General: No Apparent Distress
HEENT: Normocephalic and Atraumatic
Respiratory: Negative Wheezes or Rales
Cardiac: Regular Rhythm and S1/S2
GI: Soft and Nontender
Genito-urinary: No Costovertebral Tender
Musculoskeletal: No Edema
Neuro: AO x 3
Psych: Calm
Assessment:
Severe sepsis (Leukocytosis, tachycardia, UTI, lactic acidosis)
E. Coli Bacteremia
prior hx of MDRO E. Coli
- completed sepsis protocol IVF; lactate levels improved
- continue IV Rocephin, day 3 - follow cultures note E. coli w/ MDR ampicillin unasyn gentamicin bactrim intermediate resistance cefazolin and tobramycin
- repeat blood cultures NGTD 48H
-ID eval appreciated cont Ceftriaxone while inpt and convert to Cefdinir on discharge, to cont w/ abx through 06/24
SAMARIA resolved
- completed IVF
- renal/bladder US appreciated no acute abn's
Elevated LFTs
- mildly chronically elevated
- improving
Chronic HFmrEF
Essential HTN
- Jardiance discontinued given frequent recurrent UTI
- Lasix Entresto resumed with holding parameters, continue
- continue BB
HLD - statin on hold
Mild Acidosis resolved with Bicarb supplementation completed
Overflow incontinence
- cont oxybutynin
- Held Myrbetriq
- noted prior hx of Bulkamid procedure (Dr. Willy Hill)
-Outpatient Urology Follow up recommended
Rheumatoid arthritis
Osteoarthritis
- cont Sulfasalazine
- held�leflunomide for now
Hypothyroidism
- continue Synthroid
Hyponatremia from hypotonic fluids since improved/resolved Na 130s
Hypocalcemia wnl when corrected for low albumin
Hypokalemia
monitor and replete as needed
Mild Anemia
H&H stable
PT/OT eval appreciated patient improving recommending home health however patient declines
DVT ppx: Lovenox
Code: Full
I spent a total of 50 minutes with the patient or on the floor. More than 50% of this time involved counseling and coordination of care.
Anticipated Discharge: Within 24 hours
Subjective/Interval History
-
Date of Service: June 19, 2023
No acute distress reports feeling well.
Objective Data
-
Labs:
Laboratory Results
06/19/23
07:09
WBC Pending
Hgb Pending
Hct Pending
Plt Count Pending
Sodium Pending
Potassium Pending
Chloride Pending
Carbon Dioxide Pending
BUN Pending
Creatinine Pending
Glucose Pending
Calcium Pending
Total Bilirubin Pending
AST Pending
ALT Pending
Alkaline Phosphatase Pending
Vital Signs:
Vital Signs
Temp Pulse Resp BP Pulse Ox
97.4 F 82 14 122/57 94
06/18/23 23:00 06/18/23 23:00 06/18/23 23:00 06/18/23 23:00 06/18/23 23:00
I&O
06/18/23 06/19/23 06/20/23
06:59 06:59 06:59
Intake Total 720 / 720 900 / 900
Balance 720 / 720 900 / 900
[2023-06-19 07:50] VITALS: BP 125/56
[2023-06-19 08:03] LABS: % Basophils 1.2 % (0-2); % Eosinophils 8.3 % (0-6); % Immature Granulocytes 0.3 % (0-0.5); % Monocytes 13.3 % (1.7-9.3); % Neutrophils 43.9 % (42.2-75.2); Absolute Basophils 0.1 10^3/uL (0-0.2); Absolute Eosinophils 0.5 10^3/uL (0-0.7); Absolute Lymphocytes 1.9 10^3/uL (1.2-3.4); Absolute Monocytes 0.8 10^3/uL (0.1-0.6); Absolute Neutrophils 2.5 10^3/uL (1.4-6.5); Hematocrit 35.8 % (37.0-47.0); Hemoglobin 11.9 g/dL (12.0-16.0); Mean Corp Hgb Conc. 33.2 g/dL (33.0-37.0); Mean Corpuscular Hgb 30.7 pg (27.0-31.0); Mean Corpuscular Volume 92.5 fL (81.0-99.0); Mean Platelet Volume 10.6 fL (7.4-10.4); Nucleated Red Blood Cells % 0 %; Platelet Count 185 10^3/uL (130-400); Red Blood Cell Count 3.87 10^6/uL (4.20-5.40); Red Cell Dist. Width 13.9 % (11.5-14.5); White Blood Cell Count 5.8 10^3/uL (4.8-10.8)
[2023-06-19 08:11] LABS: ALT (SGPT) 36 U/L (0-35); AST (SGOT) 45 U/L (14-36); Alkaline Phosphatase 224 U/L (38-126); Blood Urea Nitrogen 20 mg/dl (7-17); Calcium 8.8 mg/dl (8.4-10.2); Carbon Dioxide 26 mmol/L (22-30); Chloride 102 mmol/L (98-107); Estimated Creatinine Clearance 59 ml/min; Glucose 100 mg/dl (70-99); Potassium 3.6 mmol/L (3.5-5.1); Sodium 136 mmol/L (135-145); Total Protein 6.3 g/dl (6.3-8.2); eGFR > 60.00
[2023-06-19] MEDS: AZULFIDINE 500 MG PO ×2 (09:37→21:17)
[2023-06-19] MEDS: LOW STRENGTH ASPIRIN 81 MG PO (09:37)
[2023-06-19] MEDS: LIPITOR 40 MG PO (09:37)
[2023-06-19] MEDS: LASIX 20 MG PO (09:37)
[2023-06-19] MEDS: TOPROL XL 25 MG PO (09:37)
[2023-06-19] MEDS: ENTRESTO 49 MG/51 MG 1 TAB PO ×2 (09:37→21:17)
[2023-06-19] MEDS: DESENEX/MITRAZOL/ZEASORB 1 APPLIC TOPICAL ×2 (09:39→21:16)
[2023-06-19 10:20] VITALS: BP 138/66; PULSE 83; O2SAT 94
--- NOTE | 2023-06-19 11:16 | W.PN.ID1 ---
Date of Service
Date of Service: June 19, 2023
Today's Communication
Continue antibiotics.
Assessment / Plan
Complicated urinary tract infection
Bacteremia
Leukocytosis
Chills
HTN
Hypothyroidism
Recommendations:
Continue with ceftriaxone while inpatient.
At discharge, change to cefdinir 300 mg p.o. twice daily. Continue with antibiotics through 06/25/2023.
Consider repeat urinalysis/reflex culture approximately 10 to 14 days following completion of antibiotic therapy.
Given history of multiple episodes of UTI, patient may benefit from Urology evaluation as an outpatient.
Chief Complaint
-: UTI and Bacteremia
Subjective / Review of Systems
Review of Systems: No Fever, No Chills, No Cough, No Abdominal Pain and No Dysuria
Vital Signs / Physical Exam
Vital Signs
Vital Signs
Temp Pulse Resp BP Pulse Ox
97.6 F 82 18 125/56 93
06/19/23 07:50 06/19/23 07:50 06/19/23 07:50 06/19/23 07:50 06/19/23 07:50
Physical Exam
Constitutional: No Acute Distress, Comfortable and Non-toxic
Cardiovascular: S1/S2; Negative S3/S4
Pulmonary: Non Labored; Negative Wheezes or Rales
Gastrointestinal: Soft, Non Tender and Non Distended
Genito-Urinary: Negative CVA Tenderness
Neurological: Awake and Alert
Psychological: Calm
Objective Data
Lab Data
Lab Results
06/19/23 07:09
06/19/23 07:09
Estimated Creat Clear 59 ml/min 06/19/23 07:09
Lactic Acid 1.4 mmol/L (0.7-2.0) 06/15/23 15:33
Total Bilirubin 1.0 mg/dl (0.2-1.3) 06/19/23 07:09
AST 45 U/L (14-36) H 06/19/23 07:09
ALT 36 U/L (0-35) H 06/19/23 07:09
Alkaline Phosphatase 224 U/L (38-126) H 06/19/23 07:09
Most recent labs reviewed.
Micro Results:
06/16/23 07:00 Blood Culture - Preliminary
Blood/Venous No Growth in 72 hours- Final report to follow
06/14/23 21:23 Blood Culture - Final
Blood/Venous Escherichia coli
Gram Stain - Final
06/14/23 23:01 Urine Culture - Final
Urine Escherichia coli
Blood Culture Final 06/17/23-0834
Organism 1 Escherichia coli
1. Escherichia coli
M.I.C. RX
--------- ---
Amoxicillin/Potas. Clavulanate <=8/4 S
Ampicillin >16 R
Ampicillin/Sulbactam >16/8 R
Cefazolin 4 I
Cefepime <=2 S
Ceftazidime <=1 S
Ceftriaxone <=1 S
Ertapenem <=0.5 S
Ciprofloxacin <=0.25 S
Gentamicin >8 R
Levofloxacin <=0.5 S
Meropenem <=1 S
Piperacillin/Tazobactam <=16 S
Tobramycin 8 I
Trimethoprim/Sulfamethoxazole >2/38 R
Imaging:
06/16/2023 Ultrasound (renal with bladder): No hydronephrosis noted. No solid renal mass or echogenic shadowing foci to suggest renal calculi. A largely decompressed bladder is seen in the pelvis and otherwise appears grossly unremarkable.
Ureterovesical jets were not visualized. Please see full dictation for additional detail.
--- NOTE | 2023-06-19 14:24 | CM ---
CM reviewed pt with Dr Fraga- ready for dc
Call from dtr who is requesting SNF be arranged at [facility]
Therapy evals reviewed thoroughly of SNF vs VN and role of IBC in auth determination reviewed
Pt offered bed at [facility]
IBC auth obtained
Auth# [id number] 6 days NRD 06/23 call [phone]
CM attempted bedside meeting with pt to discuss [facility] SNF
Pt refusing to speak with CM, deferred all planning to dtr
Call back from dtr who noted pt refusing SNF, only will go home now
VN discussed and was declined due to poor past experience
Pt and dtr in agreement with outpatient therapy
Dtr and grandtr will be home come tomorrow throughout the days to assist pt
Dr Fraga in agreement with dc tomorrow with outpt therapy
[facility] admissions alerted of change in dc dispo
Discharge Disposition- tomorrow home with outpt PT/OT
[2023-06-19 15:55] VITALS: BP 120/66
[2023-06-19] MEDS: LOVENOX 40 MG SC (16:30)
[2023-06-19 16:50] VITALS: BP 151/93; PULSE 96; O2SAT 95
[2023-06-19 23:50] VITALS: BP 132/65
[2023-06-20] MEDS: SYNTHROID 25 MCG PO (05:46)
[2023-06-20 06:00] VITALS: BMI 33.6
[2023-06-20 07:00] VITALS: BP 141/61
--- NOTE | 2023-06-20 07:22 | W.PN.HOSP.TC ---
Addendum entered and electronically signed by Paulina Fraga MD 06/20/23 16:25:
correction to below, home atorvastatin resumed since 06/14 tolerating well.
Original Note:
Today's Communication/Plan
-
discharge
Assessment / Plan
Assessment / Plan
Physical Exam
General: No Apparent Distress
HEENT: Normocephalic and Atraumatic
Respiratory: Negative Wheezes or Rales
Cardiac: Regular Rhythm and S1/S2
GI: Soft and Nontender
Genito-urinary: No Costovertebral Tender
Musculoskeletal: No Edema
Neuro: AO x 3
Psych: Calm
Assessment:
Severe sepsis (Leukocytosis, tachycardia, UTI, lactic acidosis)
E. Coli Bacteremia
prior hx of MDRO E. Coli
- completed sepsis protocol IVF; lactate levels improved
- cultures noted E. coli w/ MDR ampicillin unasyn gentamicin bactrim intermediate resistance cefazolin and tobramycin
- repeat blood cultures NGTD >48H
-ID eval appreciated cont Ceftriaxone while inpt and convert to Cefdinir 300 mg BID on discharge, to cont w/ abx through 06/24
SAMARIA resolved
- completed IVF
- renal/bladder US appreciated no acute abn's
Elevated LFTs
- mildly chronically elevated
- improving/stable
Chronic HFmrEF
Essential HTN
- Jardiance discontinued given frequent recurrent UTI
- Lasix Entresto resumed with holding parameters, continue
- continue BB
HLD - statin on hold
Mild Acidosis resolved with Bicarb supplementation completed
Overflow incontinence
- cont oxybutynin
- Held Myrbetriq
- noted prior hx of Bulkamid procedure (Dr. Willy Hill)
-Outpatient Urology Follow up recommended
Rheumatoid arthritis
Osteoarthritis
- cont Sulfasalazine
- held�leflunomide for now
Hypothyroidism
- continue Synthroid
Hyponatremia from hypotonic fluids since improved/resolved Na 130s
Hypocalcemia wnl when corrected for low albumin
Hypokalemia
monitor and replete as needed
Mild Anemia
H&H stable
PT/OT eval appreciated patient improving recommending home health however patient declines
DVT ppx: Lovenox
Code: Full
Medically stable for discharge home with outpatient PT/OT and follow up recommendations.
discussed with patient and her daughter Mayra
Total Time Preparing Discharge ___50____ minutes including examination of the patient, summary of the hospital stay, instructions for continuing care to all relevant caregivers; and preparation of discharge records, prescriptions, and referral
forms if necessary.
Anticipated Discharge: Today
Subjective/Interval History
-
Date of Service: June 20, 2023
Seen and examined at bedside in no acute distress sitting up comfortably in chair. Reports overall feeling well. Denies new acute issues. Eager to go home.
Objective Data
-
Vital Signs:
Vital Signs
Temp Pulse Resp BP Pulse Ox
97.4 F 78 17 132/65 93
06/19/23 23:50 06/19/23 23:50 06/19/23 23:50 06/19/23 23:50 06/19/23 23:50
I&O
06/19/23 06/20/23 06/21/23
06:59 06:59 06:59
Intake Total 900 / 900 990 / 990
Balance 900 / 900 990 / 990
[2023-06-20] MEDS: TOPROL XL 25 MG PO (09:25)
[2023-06-20] MEDS: LASIX 20 MG PO (09:25)
[2023-06-20] MEDS: LOW STRENGTH ASPIRIN 81 MG PO (09:25)
[2023-06-20] MEDS: ENTRESTO 49 MG/51 MG 1 TAB PO (09:26)
[2023-06-20] MEDS: DESENEX/MITRAZOL/ZEASORB 1 APPLIC TOPICAL (09:26)
[2023-06-20] MEDS: AZULFIDINE 500 MG PO (09:26)
[2023-06-20] MEDS: LIPITOR 40 MG PO (09:26)
--- NOTE | 2023-06-20 14:58 | W.PN.ID1 ---
Date of Service
Date of Service: June 20, 2023
Today's Communication
Change to cefdinir.
Assessment / Plan
Complicated urinary tract infection
Bacteremia
Leukocytosis
Chills
HTN
Hypothyroidism
Recommendations:
Change to cefdinir 300 mg p.o. twice daily. Continue with antibiotics through 06/25/2023.
Repeat urinalysis/reflex culture 10 to 14 days following completion of antibiotic therapy.
Given history of multiple episodes of UTI, patient may benefit from Urology evaluation as an outpatient.
Chief Complaint
-: UTI and Bacteremia
Subjective / Review of Systems
Review of Systems: No Fever and No Chills
Vital Signs / Physical Exam
Vital Signs
Vital Signs
Temp Pulse Resp BP Pulse Ox
97.8 F 81 18 141/61 92
06/20/23 07:00 06/20/23 07:00 06/20/23 07:00 06/20/23 07:00 06/20/23 07:00
Physical Exam
Constitutional: No Acute Distress, Comfortable and Non-toxic
Eyes: No Conjunctival Hemorrhage and Sclera Anicteric
Cardiovascular: S1/S2; Negative S3/S4
Pulmonary: Negative Wheezes, Rales or Rhonchi
Gastrointestinal: Soft and Non Tender
Neurological: Awake and Alert
Psychological: Calm
Objective Data
Lab Data
Lab Results
06/19/23 07:09
06/19/23 07:09
Estimated Creat Clear 59 ml/min 06/19/23 07:09
Lactic Acid 1.4 mmol/L (0.7-2.0) 06/15/23 15:33
Total Bilirubin 1.0 mg/dl (0.2-1.3) 06/19/23 07:09
AST 45 U/L (14-36) H 06/19/23 07:09
ALT 36 U/L (0-35) H 06/19/23 07:09
Alkaline Phosphatase 224 U/L (38-126) H 06/19/23 07:09
Most recent labs reviewed.
Micro Results:
06/16/23 07:00 Blood Culture - Preliminary
Blood/Venous No Growth in 4 days- Final report to follow
06/14/23 21:23 Blood Culture - Final
Blood/Venous Escherichia coli
Gram Stain - Final
06/14/23 23:01 Urine Culture - Final
Urine Escherichia coli
Blood Culture Final 06/17/23-0834
Organism 1 Escherichia coli
1. Escherichia coli
M.I.C. RX
--------- ---
Amoxicillin/Potas. Clavulanate <=8/4 S
Ampicillin >16 R
Ampicillin/Sulbactam >16/8 R
Cefazolin 4 I
Cefepime <=2 S
Ceftazidime <=1 S
Ceftriaxone <=1 S
Ertapenem <=0.5 S
Ciprofloxacin <=0.25 S
Gentamicin >8 R
Levofloxacin <=0.5 S
Meropenem <=1 S
Piperacillin/Tazobactam <=16 S
Tobramycin 8 I
Trimethoprim/Sulfamethoxazole >2/38 R
Imaging:
06/16/2023 Ultrasound (renal with bladder): No hydronephrosis noted. No solid renal mass or echogenic shadowing foci to suggest renal calculi. A largely decompressed bladder is seen in the pelvis and otherwise appears grossly unremarkable.
Ureterovesical jets were not visualized. Please see full dictation for additional detail.
--- NOTE | 2023-06-20 16:19 | W.DCSUMMARY ---
Discharge Summary
Discharge Data
Date of Admission: 06/15/23
Date of Discharge: 06/20/23
-
Pending Results: No
Discharge Plan
-
Patient Disposition: Home (Routine Discharge)
Discharge Diagnosis/Procedures: Sepsis Complicated Urinary Tract Infection, Bacteremia, Acute Kidney Injury Resolved, Chronic Heart Failure with mid restricted Ejection Fraction, mild chronically elevated Transaminitis, Hyperlipidemia, Overflow
Incontinence, Rheumatoid Arthritis, Hypothyroidism, Hyponatremia resolved, Hypokalemia resolved, Mild Anemia
Condition: Fair
Diet: Low Cholesterol and 2 Gram Sodium
Activity: As tolerated and With Walker
Driving Restrictions: Not until seen by your Dr
Bathing Restrictions: None
Blood Work: Please repeat CBC and CMP with primary care provider in 1 week of discharge.
Others Tests: Repeat urinalysis/reflex culture, with primary care provider or infectious disease, 10 to 14 days following completion of antibiotic therapy 06/24.
Other Services: PT and OT
Activity Restrictions/Additional Instructions:
Please follow up with primary care provider in 1 week of discharge, Urology in 1-2 weeks of discharge, and Infectious Disease in 2-3 weeks of discharge.
cetirizine 10 mg tablet 10 mg PO DAILY Allergies
leflunomide 20 mg tablet (Arava) 20 mg PO DAILY rheumatoid arthritis
levothyroxine 25 mcg tablet 25 mcg PO DAILY Thyroid
calcium citrate 200 mg (950 mg) tablet 200 mg PO DAILY Supplement
mirabegron 50 mg tablet,extended release 24 hr (Myrbetriq) 50 mg PO DAILY Urinary Issue
qkmxcogv-ducb-lndm 8 mg-folic 400 mcg-K 50 mcg-lutein 300 mcg tablet (Centrum Silver Women) 1 tab PO DAILY Supplement
sulfasalazine 500 mg tablet 500 mg PO BID ARTHRITIS
acetaminophen 500 mg tablet (Tylenol Extra Strength) 1,000 mg PO BIDPRN PRN mild pain
albuterol sulfate 90 mcg/actuation aerosol inhaler (ProAir HFA) 2 puff inhalation R Q4HPRN PRN shortness of breath/wheezing
cholecalciferol (vitamin D3) 50 mcg (2,000 unit) tablet 50 mcg PO DAILY Nutrition Supplement
aspirin 81 mg chewable tablet (Children's Aspirin) 81 mg PO DAILY Coronary Artery Disease
furosemide 20 mg tablet 20 mg PO DAILY for Heart Failure
metoprolol succinate 25 mg tablet,extended release 24 hr 25 mg PO DAILY for Hypertension and Heart Failure
atorvastatin 40 mg tablet 40 mg PO DAILY Hyperlipidemia
sacubitril 49 mg-valsartan 51 mg tablet (Entresto) 1 tab PO BID for Heart failure
cefdinir 300 mg capsule 300 mg PO Q12 5 days prescribed for complicated urinary tract infection to continue taking through 06/24 then stop
Repeat urinalysis/reflex culture, with primary care provider or infectious disease, 10 to 14 days following completion of antibiotic therapy.
Please take medications as prescribed/recommended and follow up with primary care provider and/or other healthcare provider involved in your care for further adjustment to your medication regimen as necessary.
Instructions: Urinary Tract Infection, Adult (DC)
Referrals:
Amadou Murphy DO [Active] - in two to three weeks
Tom Turpin MD [Active] - in one to two weeks
Asia Hauser CRNP [Family Provider] - in one week
Additional Discharge Medication Instructions: Jardiance discontinued as it can increase frequency of urinary tract infections. Please follow up with primary care provider and/or other healthcare provider involved in your care before considering to
resume.
Prescriptions:
New
cefdinir 300 mg Capsule
300 mg PO Q12 5 Days Qty: 10 0RF
Rx Instructions:
continue through 06/24 then stop
Continued
cetirizine 10 MG tablet
10 mg PO DAILY
leflunomide [Arava] 20 MG tablet
20 mg PO DAILY
levothyroxine 25 MCG tablet
25 mcg PO DAILY
sulfasalazine 500 mg Tablet
500 mg PO BID
calcium citrate 200 mg (950 mg) Tablet
200 mg PO DAILY
Centrum Silver Women 8 mg iron-400 mcg-300 mcg Tablet
1 tab PO DAILY
Myrbetriq 50 mg Tablet Extended Release 24 Hr
50 mg PO DAILY
albuterol sulfate [ProAir HFA] 90 mcg/actuation Hfa Aerosol Inhaler
2 puff INHALATION R Q4HPRN PRN (Reason: sob)
cholecalciferol (vitamin D3) 50 mcg (2,000 unit) Tablet
50 mcg PO DAILY
acetaminophen [Tylenol Extra Strength] 500 mg Tablet
1,000 mg PO BIDPRN PRN (Reason: mild pain)
aspirin [Children's Aspirin] 81 mg Tablet,Chewable
81 mg PO DAILY 30 Days Qty: 30 0RF
furosemide 20 mg Tablet
20 mg PO DAILY 30 Days Qty: 30 0RF
metoprolol succinate 25 mg Tablet Extended Release 24 Hr
25 mg PO DAILY 30 Days Qty: 30 0RF
Entresto 49-51 mg tablet
1 tab PO BID
atorvastatin 40 mg tablet
40 mg PO DAILY
Discontinued
estradiol 0.01 % (0.1 mg/gram) Cream
1 appful VAGINAL TUFR
Patient Comments:
04/05/2023, patient's daughter states that still takes this medication despite [facility] records from 02/20/2023 stating that it has been discontinued.
Jardiance 10 mg Tablet
10 mg PO DAILY 30 Days Qty: 30 0RF
Discharge Orders:
Discharge Patient (As Directed); Ordered 06/20/23
Ordered By: Paulina Fraga
[2023-06-20 16:32] VITALS: BP 123/60
[2023-06-20] MEDS: OMNICEF 300 MG PO (17:06)
--- NOTE | 2023-06-21 08:46 | CM ---
(late entry for 06/20/23)
CM following re: d/c planning
Chart reviewed
Pt medically stable for d/c
Pt had an authorization to and declined SNF admission opting to go home with outpatient PT/OT
No additional d/c needs noted
PLAN; d/c home with outpatient therapy
== END 2023-06-20 17:32 | disposition home or self-care (01) | DRG 872 ==
LOC: 4 EAST ACU 03:06
PROVIDERS: Internal Medicine; ADMITTING PHYSICIAN Internal Medicine; ATTENDING PHYSICIAN Internal Medicine; EMERGENCY PHYSICIAN Emergency Medicine; FAMILY PHYSICIAN Nurse Practitioner; OTHER PHYSICIAN Internal Medicine Infectious Disease
DX: A41.51 Sepsis due to Escherichia coli [E. coli] (principal); N39.0 Urinary tract infection, site not specified; E87.20 Acidosis, unspecified; I50.22 Chronic systolic (congestive) heart failure; I13.0 Hypertensive heart and chronic kidney disease with heart failure and stage 1 through stage 4 chronic kidney disease, or unspecified chronic kidney disease; Z16.24 Resistance to multiple antibiotics; E87.1 Hypo-osmolality and hyponatremia; N18.30 Chronic kidney disease, stage 3 unspecified; M06.9 Rheumatoid arthritis, unspecified; E03.9 Hypothyroidism, unspecified; R65.20 Severe sepsis without septic shock; E78.5 Hyperlipidemia, unspecified; M19.90 Unspecified osteoarthritis, unspecified site; E83.51 Hypocalcemia; E87.6 Hypokalemia; D64.9 Anemia, unspecified; N39.490 Overflow incontinence
CPT/HCPCS: 51701; 76770; 80053; 81003; 81015; 83605; 85025; 85027; 86850; 86900; 86901; 87040; 87071; 87086; 87149; 87186; 87205; 93005; 96361; 96374; 97116; 97162; 97166; 97535; 99285

== ENCOUNTER → 2023-08-12 09:04 | Outpatient (REF) | payer OTHER, SELFPAY | LOC: HWRAD 09:04 | PROVIDERS: ATTENDING PHYSICIAN Nurse Practitioner | DX: R79.89 Other specified abnormal findings of blood chemistry (principal) | CPT/HCPCS: 76700 ==

== ENCOUNTER → 2023-10-25 13:33 | Outpatient (REF) | payer OTHER, SELFPAY | LOC: HWRAD 13:33 | PROVIDERS: ATTENDING PHYSICIAN Physician Assistant; FAMILY PHYSICIAN Nurse Practitioner | DX: M85.80 Other specified disorders of bone density and structure, unspecified site (principal); Z12.31 Encounter for screening mammogram for malignant neoplasm of breast | CPT/HCPCS: 77063; 77067; 77080; 77081 ==

== ENCOUNTER → 2024-02-14 09:23 | Outpatient (REF) | payer OTHER, SELFPAY | LOC: HWRAD 09:23 | PROVIDERS: ATTENDING PHYSICIAN Physician Assistant; FAMILY PHYSICIAN Nurse Practitioner Adult Health | DX: E04.2 Nontoxic multinodular goiter (principal) | CPT/HCPCS: 76536 ==

== ENCOUNTER → 2024-05-18 10:05 | Outpatient (REF) | payer OTHER, SELFPAY | LOC: RCS 10:05 | PROVIDERS: ATTENDING PHYSICIAN Internal Medicine; FAMILY PHYSICIAN Nurse Practitioner Adult Health | DX: I42.8 Other cardiomyopathies (principal) | CPT/HCPCS: 93306; Q9950 ==

== ENCOUNTER → 2024-09-18 08:45 | Outpatient (REF) | payer OTHER, SELFPAY | LOC: RAD 08:45 | PROVIDERS: ATTENDING PHYSICIAN Nurse Practitioner Adult Health | DX: R13.19 Other dysphagia (principal) | CPT/HCPCS: 74221 ==

== ENCOUNTER → 2025-03-24 10:15 | Outpatient (REF) | payer OTHER, SELFPAY | LOC: HWRAD 10:15 | PROVIDERS: ATTENDING PHYSICIAN Physician Assistant; FAMILY PHYSICIAN Nurse Practitioner Adult Health | DX: E04.2 Nontoxic multinodular goiter (principal) | CPT/HCPCS: 76536 ==

== ENCOUNTER → 2025-03-29 14:10 | Outpatient (REF) | payer OTHER, SELFPAY | LOC: RAD 14:10 | PROVIDERS: ATTENDING PHYSICIAN Internal Medicine Rheumatology; FAMILY PHYSICIAN Nurse Practitioner Adult Health | DX: M05.79 Rheumatoid arthritis with rheumatoid factor of multiple sites without organ or systems involvement (principal); E55.9 Vitamin D deficiency, unspecified; M15.9 Polyosteoarthritis, unspecified | CPT/HCPCS: 72110; 73600; 73630 ==